=== PATIENT | male | born 1980 | race Caucasian/White ===

== ENCOUNTER 2016-12-14 11:27 | Emergency (ER) | payer SELFPAY ==
[~2016-12-14] VITALS: Ht 185.4 cm; Wt 85.0 kg
[~2016-12-14 11:27] MED LIST: NOCURR
[2016-12-14] MEDS ORDERED: MAGNESIUM SULFATE 2 GM, MVI, ADULT NO.1 WITH VIT K 10 ML, THIAMINE HCL 100 MG, FOLIC AC... IV ONE ×5 (11:45)
[2016-12-14 11:56] LABS: BASOPHILS % (AUTO) 0.3 % (0.0-2.0); EOSINOPHILS % (AUTO) 0.5 % (1.0-6.0); LYMPHOCYTES % (AUTO) 26.3 % (22.0-44.0); MEAN CORPUSCULAR HEMOGLOBIN 28.3 pg (26.0-34.0); MEAN CORPUSCULAR HGB CONC 33.7 G/dL (31.0-37.0); MEAN CORPUSCULAR VOLUME 84 fL (80-100); MONOCYTES # (AUTO) 0.6 K/uL (0.1-1.0); MONOCYTES % (AUTO) 8.2 % (2.0-9.0); NEUTROPHILS % (AUTO) 64.7 % (40.0-70.0); PLATELET COUNT (AUTO) 290 K/uL (150-450); RED BLOOD CELL COUNT(AUTO) 6.71 MIL/uL (4.50-5.90); RED CELL DISTRIBUTION WIDTH 16.1 % (11.5-14.5); WHITE BLOOD COUNT (AUTO) 7.7 K/uL (4.5-11.0)
[2016-12-14 11:57] LABS: HEMATOCRIT 56.4 % (41-53)
[2016-12-14 12:05] LABS: ANION GAP 11 mmol/L (8-16); CARBON DIOXIDE 28 mmol/L (22-29); CHLORIDE 106 mmol/L (98-107); CREATININE 0.92 mg/dL (0.60-1.30); GLOMERULAR FILTR. RATE CALC > 60 mL/min (>60); POTASSIUM 4.2 mmol/L (3.5-5.1); SODIUM SERUM 145 mmol/L (136-145); UREA NITROGEN, BLOOD 12 mg/dL (7-18)
[2016-12-14 12:12] LABS: ALANINE AMINOTRANSFERASE 116 U/L (12-78); ALBUMIN 4.1 g/dL (3.4-5.0); ASPARTATE AMINOTRANSFERASE 77 U/L (15-37); BILIRUBIN,TOTAL 0.7 mg/dL (0.1-1.0); TOTAL PROTEIN, SERUM 7.6 g/dL (6.4-8.2)
[2016-12-14] MEDS ORDERED: ONDANSETRON HCL 4 MG/2 ML VIAL IVP ONE (13:45)
[2016-12-14 16:08] VITALS: BP 119/83
== END 2016-12-14 16:28 | disposition home or self-care (01) ==
LOC: EMS 11:28 → EEVIPCON 11:28 → EMS 16:28
DX: F10.229 Alcohol dependence with intoxication, unspecified (principal); F17.210 Nicotine dependence, cigarettes, uncomplicated; Y90.8 Blood alcohol level of 240 mg/100 ml or more
CPT/HCPCS: 36415; 80053; 80307; 85025; 96365; 96375; 99284; 99406; G0480; J2405; J3411; J3475; J3490 ×2; J7030

== ENCOUNTER 2020-02-27 14:18 | Emergency (ER) | payer BC ==
[~2020-02-27] VITALS: Ht 167.6 cm; Wt 77.3 kg
[2020-02-27] MEDS ORDERED: ALPR0.5T8 PO (14:20)
[2020-02-27] MEDS ORDERED: SERT100T12 PO (14:20)
[2020-02-27] MEDS ORDERED: ChlordiazePOXIDE HCL 25 MG CAPSULE PO ONE (15:00)
[2020-02-27] MEDS ORDERED: SERT50TA12 PO (15:02)
[2020-02-27] MEDS ORDERED: ALPR0.255 PO (15:02)
[2020-02-27 15:10] LABS: BASOPHILS % (AUTO) 0.4 % (0.0-2.0); EOSINOPHILS % (AUTO) 0.4 % (1.0-6.0); HEMATOCRIT 51.7 % (41-53); HEMOGLOBIN 17.5 g/dL (13.5-17.5); LYMPHOCYTES # (AUTO) 1.1 K/uL (1.0-4.8); LYMPHOCYTES % (AUTO) 14.9 % (22.0-44.0); MEAN CORPUSCULAR HEMOGLOBIN 27.8 pg (26.0-34.0); MEAN CORPUSCULAR HGB CONC 33.8 G/dL (31.0-37.0); MEAN CORPUSCULAR VOLUME 82 fL (80-100); MONOCYTES # (AUTO) 0.5 K/uL (0.1-1.0); MONOCYTES % (AUTO) 6.2 % (2.0-9.0); NEUTROPHILS # (AUTO) 5.9 K/uL (1.8-7.7); NEUTROPHILS % (AUTO) 78.1 % (40.0-70.0); PLATELET COUNT (AUTO) 158 K/uL (150-450); RED CELL DISTRIBUTION WIDTH 14.2 % (11.5-14.5)
[2020-02-27] MEDS ORDERED: SODIUM CHLORIDE 0.9% 1,000 ML IV ONE (15:15)
[2020-02-27] MEDS ORDERED: ONDANSETRON HCL 4 MG/2 ML VIAL IVP ONE (15:15)
[2020-02-27] MEDS ORDERED: LORazepam 2 MG/ML VIAL IVP ONE (15:15)
[2020-02-27 15:26] LABS: ANION GAP 12 mmol/L (8-16); CALCIUM, TOTAL 9.3 mg/dL (8.8-10.5); CARBON DIOXIDE 27 mmol/L (22-29); CHLORIDE 101 mmol/L (98-107); CREATININE 0.99 mg/dL (0.60-1.30); GLOMERULAR FILTR. RATE CALC > 60 mL/min (>60); GLUCOSE,RANDOM 141 mg/dL (70-110); POTASSIUM 4.1 mmol/L (3.5-5.1); SODIUM SERUM 140 mmol/L (136-145); UREA NITROGEN, BLOOD 15 mg/dL (7-18)
[2020-02-27 15:32] LABS: ALANINE AMINOTRANSFERASE 64 U/L (12-78); ALBUMIN 3.8 g/dL (3.4-5.0); ALKALINE PHOSPHATASE 82 U/L (46-116); ASPARTATE AMINOTRANSFERASE 83 U/L (15-37); BILIRUBIN,TOTAL 0.8 mg/dL (0.1-1.0); TOTAL PROTEIN, SERUM 7.5 g/dL (6.4-8.2)
[2020-02-27 18:28] VITALS: BP 136/80
[2020-02-27] MEDS ORDERED: ONDANSETRON HCL 4 MG/2 ML VIAL IM ONE (19:15)
== END 2020-02-27 19:20 | disposition home or self-care (01) ==
LOC: EMS 14:20
DX: F10.239 Alcohol dependence with withdrawal, unspecified (principal); F17.210 Nicotine dependence, cigarettes, uncomplicated; F41.9 Anxiety disorder, unspecified; Y90.1 Blood alcohol level of 20-39 mg/100 ml
CPT/HCPCS: 36415; 80053; 85025; 96361; 96372; 96374; 96375; 99284; G0480; J2060; J2405; J7030